=== PATIENT | male | born 1940 | race Caucasian/White ===

== ENCOUNTER → 2020-06-30 11:08 | Outpatient (CLI) | payer MEDICARE, BC, SELFPAY ==
[2020-06-30 14:32] LABS: COVID19 -Nasal RAPID Negative (Negative)
== END ==
PROVIDERS: Visit Provider Physician Assistant
DX: Z20.822 Contact with and (suspected) exposure to COVID-19 (principal)
CPT/HCPCS: 87635

== ENCOUNTER 2020-07-02 10:26 | Day surgery (SDC) | payer MEDICARE, BC, SELFPAY ==
[2020-07-02] VITALS (7 sets, daily range): BP systolic 118–163; BP diastolic 67–88; PULSE 90–99; RESP 12–18; TEMP 36.8–36.9; O2SAT 95–98; BMI 22.2
--- NOTE | 2020-07-02 11:04 | PM.HP.1 ---
History of Present Illness History of Present Illness Date Patient Seen: 07/02/20 Chief complaint: SDC Narrative: History of large adenomatous colon polyp. Last colonoscopy 5 years ago and essentially negative Meds Home Medications and Allergies Home Medications Medication Instructions Recorded Confirmed Type citalopram 40 mg PO DAILY 07/02/20 07/02/20 History lisinopril 5 mg PO DAILY 07/02/20 07/02/20 History lorazepam 0.5 mg PO BID PRN 07/02/20 07/02/20 History metformin 500 mg PO QID 07/02/20 07/02/20 History pioglitazone 15 mg PO DAILY 07/02/20 07/02/20 History pravastatin 40 mg PO DAILY 07/02/20 07/02/20 History Allergies Allergy/AdvReac Type Severity Reaction Status Date / Time No Known Drug Allergies Allergy Verified 07/02/20 10:46 Exam Narrative Exam Narrative: Oropharynx free of lesions Chest clear to auscultation percussion Cardiac exam reveals no S3 or murmur Assessment & Plan Assessment & Plan narrative: History of large advanced colon polyps. Need for follow-up colonoscopy. Risks, benefits, alternatives have been explained. Quality MIPS - Admit Advanced Care Plan / Current Medications Measures: #47 ? Advanced Care Plan Clinician documentation instruction: document at admission. [] I confirmed that the patient's Advance Care Plan is present, code status is documented, or surrogate decision maker is listed in the patient?s medical record. [SATISFIES MIPS PERFORMANCE] If Yes, Stop Here [] The patient?s Advance Care plan is not present because: (select) [MIPS PERFORMANCE EXCEPTION/EXCLUSION] [] I confirmed today that the patient does not wish or was not able to name a surrogate decision maker or provide an Advance Care Plan. [] Hospice care is currently being provided or has been provided this calendar year [] I did NOT confirm today the presence of an Advance Care Plan or surrogate decision maker documented within the patient's medical record. [DOES NOT SATISFY MIPS PERFORMANCE] #130 - Documentation of Current Medications in the Medical Record Clinician documentation instruction: use macro the first time you see a patient. [] I have utilized all available immediate resources to obtain, update, or review the patient?s current medications. [SATISFIES MIPS PERFORMANCE] If Yes, Stop Here [] The patient is not eligible for medication reconciliation; the patient is in an emergent medical situation where delaying treatment would jeopardize the patient?s health. [MIPS PERFORMANCE EXCEPTION/EXCLUSION] [] I did NOT confirm, update or review the patient's current list of medications today. [DOES NOT SATISFY MIPS PERFORMANCE] MIPS - CL Central Venous Catheter Placement Measure: #76 ? Prevention of Central Venous Catheter (CVC) ? Related Bloodstream Infection Clinician documentation instruction: use macro every time you place a central line. [] All elements of Maximal Sterile Barrier Technique, including hand hygiene, skin prep, and sterile ultrasound technique (if used) were followed. [SATISFIES MIPS PERFORMANCE] If Yes, Stop Here [] If ?No?, the medical reason all elements were NOT used for medical reason [] (ex. emergent condition). [] Maximal Sterile Barrier Technique was not followed, no reason provided [DOES NOT SATISFY MIPS PERFORMANCE] MIPS - DC Heart Failure Measures: #5 - Heart Failure (HF): Angiotensin-Converting Enzyme (DANE) Inhibitor or Angiotensin Receptor Kesha (ARB) Therapy for Left Ventricular Systolic Dysfunction (LVSD) and #8 - Heart Failure (HF): Beta-Kesha Therapy for Left Ventricular Systolic Dysfunction (LVSD) Clinician documentation instruction: use macro at every CHF discharge. [] The patient has current or prior documentation of left ventricular ejection fraction (LVEF) less than 40%, or moderate or severely depressed left ventricular systolic function. Answer both: [SATISFIES MIPS PERFORMANCE] [] The patient was prescribed or already taking an Angiotensin-Converting Enzyme (DANE) Inhibitor, or Angiotensin Receptor Kesha (ARB). [] The patient was prescribed or already taking a beta-kesha. If Yes to Both, Stop Here [] Patient not prescribed/taking: [MIPS PERFORMANCE EXCEPTION/EXCLUSION] [] DANE or ARB for medical/patient/system reason(s) including [] (ex. allergy, intolerance, contraindication) [] Beta-kesha for medical/patient/system reason(s) including [] (ex. allergy, intolerance, contraindication) [] Patient not prescribed/taking: [DOES NOT SATISFY MIPS PERFORMANCE] [] DANE or ARB, no reason given [] Beta-kesha, no reason given
--- NOTE | 2020-07-02 11:05 | PM.OP.ENDO ---
Operative Date/Time/Diagnoses Date of procedure: 07/02/20 Pre-op diagnosis: See indication and findings Procedure & Clinicians Study performed: Colonoscopy Same procedure as scheduled: Yes Indications: History of large advanced colon polyps need for follow-up colonoscopy Surgeon: Mahin Gutiérrez Procedure Notes Procedure in detail: After informed consent was obtained the patient was placed in left lateral decubitus position. The video colonoscope was introduced into the rectum slowly advanced to cecum. Preparation was good. On slow withdrawal mucosa was carefully examined. The scope was removed. The patient tolerated procedure well. Blood loss none Complications none Sedation Total sedation time 18 minutes Fentanyl 150 mg Versed 5 mg IV titration Findings 1. Very extensive sigmoid and left-sided diverticulosis but diverticula present throughout the entire colon. 2. Normal ileocolonic anastomosis. Area not too far away seen to be tattooed. No residual polyp seen. 3. Otherwise negative colonoscopy to anastomosis. No new polyps seen Patient should have follow-up colonoscopy in 3-5 years.
[2020-07-02] MEDS: SODIUM CHLORIDE 0.9% 1,000 ML 100 ML IV (11:16)
[2020-07-02] MEDS: fentaNYL 250 MCG/5 ML INJ IV (11:31)
[2020-07-02] MEDS: MIDAZOLAM 5 MG/5 ML VIAL IV (11:34)
== END 2020-07-02 12:29 | disposition home or self-care (01) ==
PROVIDERS: PCP Internal Medicine; Referring Provider Internal Medicine Gastroenterology; Visit Provider Internal Medicine Gastroenterology
PROC: 0DJD8ZZ Inspection of Lower Intestinal Tract, Via Natural or Artificial Opening Endoscopic (ICD-10-PCS; CPT 45378; principal; 2020-07-02 11:30)
DX: Z12.11 Encounter for screening for malignant neoplasm of colon (principal); Z86.010 Personal history of colon polyps; K57.30 Diverticulosis of large intestine without perforation or abscess without bleeding
CPT/HCPCS: 45378; J2250; J3010